=== PATIENT | female | born 1945 | race Caucasian/White ===

== ENCOUNTER → 2017-07-21 | Outpatient (CLI) | payer MEDICARE ==
--- NOTE | 2017-07-21 16:28 | PCVCIMAG ---
EXAM: BILATERAL LOWER EXTREMITY ARTERIAL DUPLEX INDICATION: Peripheral Arterial Disease. Leg pain. Lower leg ulcers. FINDINGS: Right Leg: Satisfactory arterial waveforms in the common femoral and profunda femoral artery. Occlusion throughout the superficial femoral artery. The popliteal artery refills without evidence of stenosis. Occlusion of the mid/distal anterior tibial artery. The peroneal artery and posterior tibial arteries are patent. Left Leg: Satisfactory arterial waveforms in the common femoral and profunda femoral arteries. Occlusion throughout the superficial femoral artery. The popliteal artery refills without evidence of stenosis. The anterior tibial, peroneal, and posterior tibial arteries are patent. 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 Occlusion of the mid/distal right anterior tibial artery. LOC:[id number]
== END | disposition home or self-care (01) ==
LOC: PCVCIMAG 14:55
PROVIDERS: ATTEND Nuclear Medicine Nuclear Cardiology
DX: I73.9 Peripheral vascular disease, unspecified (principal); I77.1 Stricture of artery; L97.909 Non-pressure chronic ulcer of unspecified part of unspecified lower leg with unspecified severity
CPT/HCPCS: 93925